=== PATIENT | male | born 1960 | race Asian ===

== ENCOUNTER → 2016-06-20 10:18 | Day surgery (SDC) | payer OTHER ==
[~2016-06-20 10:18] MED LIST: Buffered Lidocaine 1% SYR 3ML* 3 ML/SYR SYRINGE INTRADERM ONE; Dexamethasone IV* 4 MG/ML 1 ML (4 MG) ONE; EPINEPHrine AMP 1 MG/ML ONE; Famotidine IV* 10 MG/ML 2 ML (20 mg) IV ONE; Lidocaine 2% PF * 5 ML VIAL ONE; Ondansetron INJ* 2 MG/ML VIAL IV PRN; Oxymetazoline 0.05% NASAL SPR* 15 ML BTL ONE; Propofol* 10 MG/ML 20 ML BTL IV PUSH ONE; Sodium Citrate/Citric Acid* 15 ML UDC ONE; Succinylcholine* 20 MG/ML 10 ML VIAL ONE; fentaNYL* 50 MCG/ML 2 ML VIAL (100 MCG VIAL) IV PRN; fentaNYL* 50 MCG/ML 2 ML VIAL (100 MCG VIAL) ONE
[2016-06-20 13:49] VITALS: BP 109/79
--- NOTE | 2016-06-20 22:09 | OP ---
DATE OF OPERATION: 06/20/16 [facility] DATE OF : 56 SURGEON: Cheo Gupta MD COIL INSPECTOR: None. ANESTHESIOLOGIST: Jamari Kelley DO ANESTHESIA: General. 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 POST-OP DIAGNOSIS: Neoplasm of uncertain behavior of larynx. OPERATIVE PROCEDURE: Microlaryngoscopy with biopsies. FINDINGS: Abnormal-appearing mucosa involving the laryngeal surface of the epiglottis, right aryepiglottic fold, and right arytenoid with an exophytic component to the arytenoid portion of the lesion. ESTIMATED BLOOD LOSS: Negligible. SPECIMEN: Multiple biopsies of the right arytenoid were placed in formalin for pathologic review. INDICATION: This is a 55-year-old male who presents for microlaryngoscopy with biopsies for recently diagnosed laryngeal lesion. DESCRIPTION OF PROCEDURE: The patient was brought to the operating room, general anesthesia was induced, and an oral endotracheal tube was placed. The table was turned 90 degrees. The patient was draped and a time-out was performed. A bivalved laryngoscope was initially used to facilitate exposure to the larynx. A dental guard had been placed to protect the upper teeth prior to introduction of the scope. The laryngoscope was able to provide a good view of the patient's larynx and the microscope was brought into the field. Based on the appearance of the larynx, the decision was made to biopsy the region of the right arytenoid. Multiple small biopsies of the right arytenoid were undertaken with a small cup forceps and placed in formalin. A pledget with 1: 1000,000 epi was then placed onto the biopsy site for hemostasis. At this point , a sliding Obie laryngoscope was then used to perform a more general laryngoscopy to obtain adequate view of the vallecula, pyriform sinuses, and postcricoid region. Although these areas appeared to be free of tumor, tumor did appear to be involving predominantly the right arytenoid with probable spread along the right aryepiglottic fold to the laryngeal surface of the epiglottis. The vocal cords were mobile. After this portion of the laryngoscopy was completed, the procedure was terminated. The dental guard was removed. The patient was returned to the care of the anesthesiologist, extubated without difficulty, and delivered to PACU in stable condition. [id number]/[facility] #: [id number] [facility]
== END | disposition home or self-care (01) ==
LOC: OR 10:18
PROVIDERS: ATTEND Otolaryngology
DX: D14.1 Benign neoplasm of larynx (principal)
CPT/HCPCS: 88305; 88341; 88342; A9270-GY; J0171; J0330; J1100; J2704; J3010

== ENCOUNTER 2017-02-07 06:56 | Day surgery (SDC) | payer OTHER ==
--- NOTE | 2017-01-24 18:07 | HP ---
CC: Stone Johnson MD * ADMISSION HISTORY AND PHYSICAL: DATE OF ADMISSION: 02/07/17 ATTENDING SURGEON: Roosevelt Melendez MD * (LORENZA Urena, dictating). CHIEF COMPLAINT: Right inguinal hernia. HISTORY OF PRESENT ILLNESS: This is a 56-year-old male referred by Dr. Johnson for evaluation of a right inguinal hernia. The patient states that around mid October, he first noted a "weird feeling" in his right groin and then subsequently noted some swelling. This occurred after a long walk, but no other antecedent straining or injury. Since then, he has had a fairly consistent bulge when he is upright and active and intermittent mild discomfort with a couple of episodes of stronger, but fleeting and brief pain. He has had nothing to suggest incarceration or strangulation. He denies any GI or symptoms. He was seen in the office by Dr. Melendez on 01/22/17, at which time exam confirmed the presence of a right inguinal hernia. No hernia was noted on the left. Dr. Melendez discussed with him the indications for surgery and methods thereof, as well as the risks, benefits and alternatives. The patient would like to proceed as scheduled with open repair right inguinal hernia with mesh. PAST MEDICAL HISTORY: The patient has a solitary kidney (congenital). 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 He does have a pending referral for infectious disease evaluation as he has had intermittent high fevers over the past couple of years with onset about 5 years ago after a trip to [place]. I believe he will be seeing Dr. Patel sometime after the first of the year. PAST SURGICAL HISTORY: His previous surgeries include: 1. 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 2. Left thoracentesis as noted above in August 2016. 3. Excision of pyogenic granuloma of the tongue remotely. No surgical or anesthesia reported problems. CURRENT MEDICATIONS: None. DRUG ALLERGIES: None known. FAMILY HISTORY: Negative for anesthesia problems, bleeding or clotting disorders. SOCIAL HISTORY: The patient is . 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 He denies use of tobacco. He drinks alcohol rarely and denies any other recreational drug use. REVIEW OF SYSTEMS: General: He does have a bit of a nonproductive cough and hoarseness currently, but no other constitutional symptoms. He states that he did lose about 15 pounds back in June when he experienced one of these febrile episodes while traveling in [place]. He has since regained most of that weight, but not quite back to his baseline. He has a good appetite. No recent fevers. Cardiovascular: No history of chest pain, palpitations, or heart murmur. Respiratory: As above. He did receive BCG as a child and it sounds as though his positive TB has been based on blood work as opposed to skin testing. He had been seen previously by Dr. Capps through [facility], for the thoracentesis. GI: No problems reported. He has never had a screening colonoscopy, but was encouraged to discuss that with Dr. Johnson. No problems reported. : As above, solitary kidney, but by his history, normal and stable renal function. Endocrine: No diabetes or thyroid dysfunction. PHYSICAL EXAMINATION GENERAL: Well-nourished, well-developed male, in no acute distress. VITAL SIGNS: Height 69 inches, weight 127 pounds. Temperature 96.5, blood pressure 88/58, pulse 84, respirations 16. HEENT: Pupils are equal, round, and reactive. EOMs intact. No conjunctival pallor. Oropharynx: Teeth in good repair. No intraoral lesions. He does have some hoarseness of the voice which he states is not his usual, but presumably related to a recent URI. NECK: No lymphadenopathy, thyromegaly, or masses. LUNGS: Clear to auscultation. No rales or wheezes, though there are some decreased breath sounds at the left base. The upper valdivia are clear. HEART: Regular rate and rhythm. No murmur noted. ABDOMEN: Soft, nontender to palpation. No palpable masses or organomegaly other than the aforementioned right inguinal hernia per Dr. Melendez's exam, which I did not repeat today. GENITALIA: As above. RECTAL: Not done. BACK: No spinous process or CVA tenderness. EXTREMITIES: No edema. SKIN: Warm and dry. No suspicious rashes or lesions noted. NEUROLOGICAL: Grossly intact. IMPRESSION: Right inguinal hernia. PLAN: Open repair of right inguinal hernia with mesh. LEW C[place], [place] [id number]/[facility] #: [id number] [facility]
[~2017-02-07 06:56] MED LIST changes: +Buffered Lidocaine 0.9% SYRIN* 5 ML/SYR SYRINGE INTRADERM ONE; -Buffered Lidocaine 1% SYR 3ML* 3 ML/SYR SYRINGE INTRADERM ONE; -Dexamethasone IV* 4 MG/ML 1 ML (4 MG) ONE; -EPINEPHrine AMP 1 MG/ML ONE; -Famotidine IV* 10 MG/ML 2 ML (20 mg) IV ONE; +Ibuprofen TAB* 600 MG PO ONE; -Lidocaine 2% PF * 5 ML VIAL ONE; -Ondansetron INJ* 2 MG/ML VIAL IV PRN; -Oxymetazoline 0.05% NASAL SPR* 15 ML BTL ONE; -Propofol* 10 MG/ML 20 ML BTL IV PUSH ONE; -Sodium Citrate/Citric Acid* 15 ML UDC ONE; +Sodium Citrate/Citric Acid* 15 ML UDC PO ONE; -Succinylcholine* 20 MG/ML 10 ML VIAL ONE; -fentaNYL* 50 MCG/ML 2 ML VIAL (100 MCG VIAL) IV PRN; -fentaNYL* 50 MCG/ML 2 ML VIAL (100 MCG VIAL) ONE
[2017-02-07] MEDS ORDERED: Buffered Lidocaine 0.9% SYRIN* 5 ML/SYR SYRINGE ONE (07:31)
[2017-02-07] MEDS ORDERED: Sodium Citrate/Citric Acid* 15 ML UDC ONE (07:31)
[2017-02-07] MEDS ORDERED: Ibuprofen TAB* 600 MG ONE (07:31)
[2017-02-07] MEDS ORDERED: ceFAZolin 2 GM PREMIX (*) 2 GM/50 ML BAG IVPB ONE (07:31)
[2017-02-07] MEDS ORDERED: Lidocaine 1% INJ* 10 MG/ML 30 ML SDV ONE (08:59)
[2017-02-07] MEDS ORDERED: Bupivacaine 0.25% SDV* 30 ML ONE (09:00)
[2017-02-07] MEDS ORDERED: Midazolam* 1 MG/ML 2 ML VIAL (2 MG) ONE (09:11)
[2017-02-07] MEDS ORDERED: fentaNYL* 50 MCG/ML 2 ML VIAL (100 MCG VIAL) ONE (09:11)
[2017-02-07] MEDS ORDERED: Propofol* 10 MG/ML 20 ML BTL IV PUSH ONE (10:02)
[2017-02-07 12:45] VITALS: BP 97/72
--- NOTE | 2017-02-07 15:11 | OP ---
CC: Stone Johnson MD * DATE OF OPERATION: 02/07/17 - [facility] DATE OF : 56 SURGEON: Roosevelt Melendez MD RUG DYER: None. ANESTHESIOLOGIST: Dr. Barnes. ANESTHESIA: LMAC. PRE-OP DIAGNOSIS: Right inguinal hernia. POST-OP DIAGNOSIS: Right inguinal hernia. OPERATIVE PROCEDURE: Open right inguinal hernia repair with mesh. DESCRIPTION OF PROCEDURE: The patient was supine on the operating table. After adequate intravenous sedation, compression stockings, Claudine Hugger warmer, and intravenous antibiotics, the right groin was clipped and prepped with antiseptic, draped in a sterile fashion. Local infiltrative anesthesia was administered and approximately 4 to 5 cm incision was created in the right inguinal region. Dissection was carried down, external oblique was opened in the direction of its fibers. Cord structures were entered and indirect hernia sac was identified, dissected free and reduced and a cone mesh plug was placed into the internal ring, sutured there with 2-0 Vicryl. A second piece of mesh was placed over the inguinal floor, sutured to the tubercle, tails were split, brought around the cord structures and was tacked down laterally. External oblique was closed over the top with 2-0 Vicryl, Roxana's with 4-0 Vicryl, skin with 4-0 Prolene followed by sterile dressing. He tolerated the procedure well. He was awakened and brought to Recovery in good condition. No complications. No drains. No pathologic specimens. Sponge and instrument counts were correct. Estimated blood loss is less than 10 mL. [id number]/[facility] #: [id number] [facility]
== END 2017-02-07 11:20 | disposition home or self-care (01) ==
LOC: OR 06:56
PROVIDERS: ATTEND Surgery
DX: K40.90 Unilateral inguinal hernia, without obstruction or gangrene, not specified as recurrent (principal); Q60.0 Renal agenesis, unilateral
CPT/HCPCS: A9270-GY; C1781; J0690; J2250; J2704; J3010